=== PATIENT | male | born 1960 | race Asian ===

== ENCOUNTER 2019-06-21 08:00 | Day surgery (SDC) | payer OTHER ==
[~2019-06-21] VITALS: Ht 170.2 cm; Wt 71.0 kg
[~2019-06-21 08:00] MED LIST: FEBU40TA3 ORAL; FOLI0.8T2 ORAL; LEVO300T5 ORAL; METO100T11 ORAL; OMEP40CA38 ORAL; SEVE800T23 ORAL
[2019-06-21 09:14] VITALS: BP 170/78; PULSE 55; RESP 16; Ht 170.2 cm; Wt 71.0 kg
[2019-06-21] MEDS ORDERED: IODIXANOL LOCM 100 ML BTL ONE (09:51)
[2019-06-21] MEDS ORDERED: VERAPAMIL 5 MG INJ ONE (09:54)
[2019-06-21] MEDS ORDERED: MIDAZOLAM 1 MG/ML 2 ML INJ ONE (09:54)
[2019-06-21] MEDS ORDERED: NITROGLYCERIN (IC) 100 MCG/ML INJ ONE (09:54)
[2019-06-21] MEDS ORDERED: FENTAnyl 50 MCG/ML VIAL ONE (09:54)
[2019-06-21] MEDS ORDERED: HEPARIN 1000 UNITS/ML 10 ML INJ ONE (10:06)
[2019-06-21] MEDS ORDERED: AMLODIPINE 5 MG TAB PO STA (10:53)
[2019-06-21 11:00] VITALS: BP 199/91; PULSE 56; RESP 18
[2019-06-21] MEDS ORDERED: hydrALAzine 20 MG INJ IV PRN (12:00)
== END 2019-06-21 12:10 | disposition home or self-care (01) ==
LOC: SDS 08:00
PROVIDERS: ATTEND Internal Medicine Cardiovascular Disease
DX: I27.20 Pulmonary hypertension, unspecified (principal); I12.0 Hypertensive chronic kidney disease with stage 5 chronic kidney disease or end stage renal disease; N18.6 End stage renal disease; Z99.2 Dependence on renal dialysis
CPT/HCPCS: 80048; 85025; 85610; 85730; 93005; 93451; C1769; C1894; J1644; J2250; J3010; Q9967